=== PATIENT | female | born 2000 | race Hispanic/Latino ===

== ENCOUNTER → 2023-09-13 | Outpatient (CLI) | payer OTHER ==
[~2023-09-13] MED LIST: ISOVUE-300 61% 100ML VIAL As Ordered ONE; LIDOCAINE 1% MDV 20ML VIAL As Ordered ONE; PROHANCE 279.3MG/ML 5ML VIAL As Ordered ONE
== END ==
LOC: M RAD 06:33
PROVIDERS: ATTEND Orthopaedic Surgery
DX: M75.01 Adhesive capsulitis of right shoulder (principal); S43.401A Unspecified sprain of right shoulder joint, initial encounter; X58.XXXA Exposure to other specified factors, initial encounter; Y92.9 Unspecified place or not applicable
CPT/HCPCS: 23350; 73223; 77002; A9576; Q9967

== ENCOUNTER 2023-11-16 10:11 | Day surgery (SDC) | payer OTHER ==
[~2023-11-16] VITALS: Ht 160 cm; Wt 76.1 kg
[2023-11-16] MEDS ORDERED: LR 1,000 ML IV SCH ×2 (10:20→15:45)
[2023-11-16] MEDS ORDERED: ROPIvacaine 0.5% 30ML VIAL PN ONE (11:55)
[2023-11-16] MEDS ORDERED: LIDOCAINE 2% 100MG/5ML SDV (FOR ANES.) As Ordered ONE (12:14)
[2023-11-16] MEDS ORDERED: MIDAZOLAM INJ 2MG/2ML VIAL As Ordered ONE (12:14)
[2023-11-16] MEDS ORDERED: ROCURONIUM BROMIDE 50MG/5ML VIAL As Ordered ONE (12:14)
[2023-11-16] MEDS ORDERED: propofoL 200 MG/20 ML VIAL As Ordered ONE (12:14)
[2023-11-16] MEDS ORDERED: ONDANSETRON 4MG 2ML VIAL As Ordered ONE (12:14)
[2023-11-16] MEDS ORDERED: fentaNYL 100 MCG/2 ML INJECTION As Ordered ONE (12:15)
[2023-11-16] MEDS ORDERED: TRANEXAMIC ACID 100 MG/ML 10ML VIAL As Ordered ONE (12:17)
[2023-11-16] MEDS: VANCOMYCIN 1000MG/20ML VIAL As Ordered ONE (12:18)
[2023-11-16] MEDS: MIDAZOLAM INJ 2MG/2ML VIAL IV PRN (12:23)
[2023-11-16] MEDS: fentaNYL 100 MCG/2 ML INJECTION IV PRN (12:24)
[2023-11-16] MEDS: ceFAZolin SOD 2 GM in IV 1 EA IV ONE (13:09)
[2023-11-16] MEDS: TRANEXAMIC ACID 100 MG/ML 10ML VIAL IV ONE (13:25)
[2023-11-16] MEDS ORDERED: PHENYLephrine 500MCG 5ML (100MCG/ML) SYRINGE As Ordered ONE (13:38)
[2023-11-16] MEDS ORDERED: SUGAMMADEX SODIUM 500 MG/5 ML VIAL (BRIDION) As Ordered ONE (13:43)
[2023-11-16] MEDS: EPINEPHrine 1MG/ML INJ 30ML MD-VIAL As Ordered ONE (14:00)
[2023-11-16] MEDS ORDERED: oxyCODONE 5MG TAB PO PRN (15:45)
[2023-11-16] MEDS ORDERED: HYDROMORPHONE HCL 0.5 MG/ 0.5 ML SYRINGE IV PRN (15:45)
[2023-11-16] MEDS ORDERED: fentaNYL 100 MCG/2 ML INJECTION IV PRN (15:45)
[2023-11-16] MEDS ORDERED: ONDANSETRON 4MG 2ML VIAL IV PRN (15:45)
[2023-11-16 17:30] VITALS: BP 115/88; TEMP 97.8; O2SAT 100
== END 2023-11-16 18:08 | disposition home or self-care (01) ==
LOC: M SDC 10:11
PROVIDERS: ATTEND Orthopaedic Surgery
DX: M75.41 Impingement syndrome of right shoulder (principal); M75.51 Bursitis of right shoulder; M24.111 Other articular cartilage disorders, right shoulder
CPT/HCPCS: 29806; 81025; C1713; J0171; J0665; J0690; J1100; J2250; J2371; J2405; J3010; J3370

== ENCOUNTER 2024-02-16 13:16 | Emergency (ER) | payer OTHER ==
[~2024-02-16] VITALS: Ht 160 cm; Wt 71.9 kg
[2024-02-16] MEDS ORDERED: PRENTAB9 (13:51)
[2024-02-16 14:30] LABS: BASO % 0.2 % (0.0-1.0); EOS # 0.1 10^3/uL (0.0-0.5); EOS % 1.3 % (0.0-3.0); HEMOGLOBIN 15.6 g/dl (12.0-15.5); LYMPH # 2.3 10^3/uL (1.5-5.0); LYMPH % 22.3 % (24.0-44.0); MEAN CORPUSCULAR HEMOGLOBIN 30.4 pg (27.0-33.0); MEAN CORPUSCULAR HGB CONC 35.5 g/dl (32.0-36.5); MEAN CORPUSCULAR VOLUME 85.8 fl (80.0-96.0); MONO # 0.5 10^3/uL (0.0-0.8); MONO % 4.9 % (2.0-8.0); NEUTROPHILS # 7.4 10^3/uL (1.5-8.5); NEUTROPHILS % 70.8 % (36.0-66.0); PLATELET COUNT, AUTOMATED 269 10^3/uL (150-450); RED BLOOD COUNT 5.13 10^6/uL (4.00-5.40); WHITE BLOOD COUNT 10.4 10^3/uL (4.0-10.0)
[2024-02-16 15:01] LABS: ALBUMIN 3.6 G/DL (3.2-5.2); ALKALINE PHOSPHATASE 71 U/L (35-104); ALT/SGPT 12 U/L (7.0-40); AST/SGOT 12 U/L (<34); BILIRUBIN,DIRECT 0.1 MG/DL (<0.4); BILIRUBIN,TOTAL 0.4 MG/DL (0.3-1.2); BLOOD UREA NITROGEN 9 MG/DL (9-23); CALCIUM LEVEL 9.7 MG/DL (8.5-10.1); CARBON DIOXIDE LEVEL 25 MMOL/L (20-31); CHLORIDE LEVEL 103 MMOL/L (98-107); CREATININE FOR GFR 0.57 MG/DL (0.55-1.30); GLOMERULAR FILTRATION RATE > 60.0 (>60); GLUCOSE, FASTING 89 MG/DL (60-100); POTASSIUM SERUM 4.4 MMOL/L (3.5-5.1); SODIUM LEVEL 137 MMOL/L (136-145)
[2024-02-16 15:11] LABS: APPEARANCE, URINE HAZY (CLEAR); BACTERIA, URINE AUTO NEGATIVE (NEGATIVE); BILIRUBIN, URINE AUTO NEGATIVE (NEGATIVE); BLOOD, URINE BLOOD NEGATIVE (NEGATIVE); COLOR, URINE YELLOW (YELLOW); GLUCOSE, URINE (UA) AUTO NEGATIVE (NEGATIVE); KETONE, URINE AUTO NEGATIVE (NEGATIVE); LEUKOCYTE ESTERASE, URINE AUTO NEGATIVE (NEGATIVE); NITRITE, URINE AUTO NEGATIVE (NEGATIVE); PROTEIN, URINE AUTO NEGATIVE (NEGATIVE); RBC, URINE AUTO 1 /HPF (0-3); SPECIFIC GRAVITY URINE AUTO 1.025 (1.002-1.035); SQUAMOUS EPITHELIAL CELL UR AU 0 /HPF (0-6); WBC, URINE AUTO 1 /HPF (0-3)
[2024-02-16 15:16] LABS: HCG, SERUM QUANTITATIVE 93836.3 MIU/ML (<4.2)
[2024-02-16] MEDS: ONDANSETRON 4MG ORAL DISINTEGRATING TAB PO ONE (19:20)
[2024-02-16] MEDS ORDERED: ONDANSETRON 4MG ORAL DISINTEGRATING TAB PO ONE (20:05)
[2024-02-16] MEDS ORDERED: ONDA-282 PO (20:08)
[2024-02-16 20:16] VITALS: BP 118/69; TEMP 96.8; O2SAT 97
[2024-02-16 20:39] LABS: RSV AMPLIFICATION NEGATIVE (NEGATIVE)
== END 2024-02-16 20:19 | disposition home or self-care (01) ==
LOC: M ED 13:16
DX: O21.9 Vomiting of pregnancy, unspecified (principal); Z3A.12 12 weeks gestation of pregnancy

== ENCOUNTER 2024-10-20 21:50 | Emergency (ER) | payer OTHER ==
[~2024-10-20] VITALS: Ht 160 cm; Wt 62.8 kg
[~2024-10-20 21:50] MED LIST changes: -ISOVUE-300 61% 100ML VIAL As Ordered ONE; -LIDOCAINE 1% MDV 20ML VIAL As Ordered ONE; +ONDA-282 PO; +PRENTAB9; -PROHANCE 279.3MG/ML 5ML VIAL As Ordered ONE
[2024-10-20 23:52] VITALS: TEMP 97.9
[2024-10-21 00:54] VITALS: BP 112/74; O2SAT 95
[2024-10-21] MEDS ORDERED: NAPR-837 PO (02:04)
[2024-10-21] MEDS: NAPROXEN 250 MG TAB PO ONE (02:13)
== END 2024-10-21 02:17 | disposition home or self-care (01) ==
LOC: M ED 21:50
DX: S00.01XA Abrasion of scalp, initial encounter (principal); W01.198A Fall on same level from slipping, tripping and stumbling with subsequent striking against other object, initial encounter; D64.9 Anemia, unspecified; F41.9 Anxiety disorder, unspecified; Y92.009 Unspecified place in unspecified non-institutional (private) residence as the place of occurrence of the external cause; Y93.89 Activity, other specified; Y99.9 Unspecified external cause status; Z79.1 Long term (current) use of non-steroidal anti-inflammatories (NSAID); Z79.83 Long term (current) use of bisphosphonates; Z79.899 Other long term (current) drug therapy